=== PATIENT | female | born 1990 | race Hispanic/Latino ===

== ENCOUNTER 2022-11-14 21:36 | Emergency (ER) | payer SELFPAY ==
[~2022-11-14] VITALS: Ht 165.1 cm; Wt 90.9 kg
[2022-11-14] MEDS ORDERED: ULTRAM50 MG PO (22:41)
[2022-11-14] MEDS ORDERED: AMOXICILLIN500 MG PO (23:11)
[2022-11-14 23:13] VITALS: BP 133/88
== END 2022-11-14 23:35 | disposition home or self-care (01) | DRG 605 ==
LOC: ED 21:36
PROC: 2W3FXYZ Immobilization of Left Hand using Other Device (ICD-10-PCS; principal; 2022-11-14)
DX: S60.222A Contusion of left hand, initial encounter (principal); W18.30XA Fall on same level, unspecified, initial encounter